=== PATIENT | male | born 1990 | race Caucasian/White ===

== ENCOUNTER 2024-09-28 22:01 | Inpatient (IN) | payer BC, OTHER ==
[~2024-09-28] VITALS: Ht 180.3 cm; Wt 91.2 kg
[2024-09-28 22:51] LABS: BASOPHILS % (AUTO) 0.8 % (0.0-2.0); EOSINOPHILS % (AUTO) 0.6 % (0.0-6.0); HEMATOCRIT 44 % (39-51); HEMOGLOBIN 15.4 g/dL (13.5-17.5); LYMPHOCYTES # (AUTO) 1.9 K/uL (0.8-4.8); LYMPHOCYTES % (AUTO) 36.4 % (20.0-44.0); MEAN CORPUSCULAR HEMOGLOBIN 28 PG (26.0-33.0); MEAN CORPUSCULAR HGB CONC 35 g/dl (31.0-36.0); MEAN CORPUSCULAR VOLUME 80 fL (80-96); MONOCYTES # (AUTO) 0.3 K/uL (0.1-1.30); MONOCYTES % (AUTO) 6.5 % (2.0-12.0); NEUTROPHILS # (AUTO) 2.9 K/uL (1.8-8.9); NEUTROPHILS % (AUTO) 55.7 % (43.0-81.0); PLATELET COUNT (AUTO) 227 K/uL (150-450); RED BLOOD CELL COUNT(AUTO) 5.44 MIL/uL (4.5-6.0); RED CELL DISTRIBUTION WIDTH 13.6 % (11.5-15.0); WHITE BLOOD COUNT (AUTO) 5.2 K/uL (4.3-11.0)
[2024-09-28 22:59] LABS: CALCIUM, SERUM 9.8 mg/dL (8.5-10.1); CREATININE 1.1 mg/dL (0.6-1.3); POTASSIUM 3.3 mmol/L (3.5-5.1)
[2024-09-28 23:05] LABS: ALBUMIN 4.4 g/dL (3.4-5.0); BILIRUBIN,TOTAL 0.6 mg/dL (0.2-1.0); TOTAL PROTEIN, SERUM 8.3 g/dL (6.4-8.2)
[2024-09-28 23:32] LABS: APPEARANCE,URINE CLEAR (CLEAR); BILIRUBIN,URINE NEGATIVE (NEGATIVE); BLOOD, URINE TRACE-INTA Ery/uL (NEGATIVE); COLOR,URINE YELLOW (YELLOW); KETONES,URINE TRACE mg/dL (NEGATIVE); LEUKOCYTE ESTERASE ,URINE NEGATIVE (NEGATIVE); NITRITE, URINE NEGATIVE (NEGATIVE); PROTEIN,URINE NEGATIVE (NEGATIVE); UGLUCOSE NEGATIVE (NEGATIVE); UROBILINOGEN,URINE 0.2 EU/dL (0.2)
[2024-09-29 00:01] LABS: ADD URINE CULTURE NO; BACTERIA,URINE Few /HPF (None Seen); SQUAMOUS EPITHELIAL CELL,UR Few /HPF (None Seen); WBC,URINE 0-2 /HPF (0-3)
[2024-09-29] MEDS ORDERED: POTASSIUM CHLORIDE 20 MEQ TAB.PRT.SR PO ONE (00:53)
[2024-09-29] MEDS: POTASSIUM CHLORIDE 20 MEQ TAB.PRT.SR PO ONE (00:53)
[2024-09-29 02:33] LABS: AMPHETAMINE, URINE NEGATIVE (NEGATIVE); BARBITURATE, URINE NEGATIVE (NEGATIVE); CANNABINOID, URINE NEGATIVE (NEGATIVE); COCCAINE, URINE NEGATIVE (NEGATIVE); OPIATE, URINE NEGATIVE (NEGATIVE); PHENCYCLIDINE SCREEN,URINE NEGATIVE (NEGATIVE)
[2024-09-29 02:37] LABS: BENZODIAZEPINE, URINE POSITIVE (NEGATIVE)
[2024-09-29] MEDS ORDERED: LORAZEPAM INJ 2 MG/ML VIAL ONE (03:33)
[2024-09-29] MEDS: IV NS 0.9% 1,000 ML BAG IV ONE (03:34)
[2024-09-29] MEDS: LORAZEPAM INJ 2 MG/ML VIAL IV ONE (03:34)
[2024-09-29] MEDS ORDERED: MAGNESIUM HYDROXIDE 30 ML UDC PO PRN (05:30)
[2024-09-29] MEDS ORDERED: ACETAMINOPHEN 325 MG TABLET PO PRN (05:30)
[2024-09-29] MEDS: ASPIRIN EC 81 MG TABLET.DR PO SCH (05:30)
[2024-09-29 06:59] VITALS: O2SAT 98
[2024-09-29] MEDS ORDERED: ASPIRIN EC 81 MG TABLET.DR PO ONE (07:17)
[2024-09-29 08:30] VITALS: BP 130/90; TEMP 97.9; O2SAT 97
[2024-09-29] MEDS: PANTOPRAZOLE 40 MG TABLET.DR PO SCH (08:36)
[2024-09-29] MEDS ORDERED: MIRT-91 PO (10:08)
[2024-09-29] MEDS ORDERED: ALFU10TA10 PO (10:08)
[2024-09-29] MEDS ORDERED: METO25TA20 PO (10:08)
[2024-09-29 12:00] VITALS: BP 132/92; TEMP 99.1; O2SAT 98
[2024-09-29 16:00] VITALS: BP 119/83; TEMP 98.8; O2SAT 98
[2024-09-29] MEDS: ONDANSETRON HCL/PF 4 MG/2 ML VIAL IVP PRN (18:10)
[2024-09-29] MEDS: DIAZEPAM 5 MG TABLET PO PRN (19:23)
[2024-09-29 20:00] VITALS: BP 125/88; TEMP 98.1; O2SAT 98
[2024-09-29] MEDS: MIRTAZAPINE 15 MG TABLET PO SCH (22:17)
[2024-09-29] MEDS: METOPROLOL SUCCINATE 25 MG TAB.SR.24H PO SCH (23:26)
[2024-09-30 07:00] VITALS: BP 110/76; TEMP 97.2; O2SAT 100
[2024-09-30 08:21] VITALS: BP 110/76
== END 2024-09-30 17:42 | disposition home or self-care (01) | DRG 207 ==
LOC: ER 22:06 → TELE 09-29 07:58 → MED 09-29 16:47
PROVIDERS: ADMIT Nurse Practitioner Acute Care; ATTEND Nurse Practitioner Acute Care
DX: R00.2 Palpitations (principal); E87.6 Hypokalemia; F41.9 Anxiety disorder, unspecified; R07.9 Chest pain, unspecified; R94.31 Abnormal electrocardiogram [ECG] [EKG]
CPT/HCPCS: 36415; 70450-TC; 71045-TC; 80053-TC; 81001; 83735-TC; 83880; 84484-TC; 85025-TC; 93307-TC; G0378; J2060; J2405; J7030